=== PATIENT | male | born 1955 | race Caucasian/White ===

== ENCOUNTER → 2017-06-18 | Outpatient (CLI) | payer MEDICARE, OTHER ==
--- NOTE | 2017-06-18 09:53 | XR ---
Lumbar spine HISTORY: Low back pain, lumbar pain 3 views of the lumbar spine No comparisons There is multilevel spondylosis. Lumbar vertebral bodies show preserved height and alignment. Bone mi neralization mildly reduced. Loss of disc height present at the intervertebral levels, there is vacuu m phenomenon at L5-S1. Sclerosis present in the posterior elements. Atherosclerotic vascular calcific ations within the aorta, question ectasia. IMPRESSION: Degenerative disc disease. Facet arthropathy. There may be abdominal aortic ectasia.
--- NOTE | 2017-06-18 09:54 | XR ---
Left knee HISTORY: Left knee pain, trauma 3 views of the left knee There is no comparison. Soft tissue swelling is noted. Suprapatellar increased density suspected. Alignment, bone mineralizat ion within normal limits. Suspect some joint space loss in the medial compartment with minimal spurri ng. IMPRESSION: Soft tissue swelling. Osteoarthritis. Possible joint effusion.
== END | disposition home or self-care (01) ==
LOC: RADXRMAIN 06:34
PROVIDERS: ATTEND Family Medicine
DX: M51.36 Other intervertebral disc degeneration, lumbar region (principal); M46.86 Other specified inflammatory spondylopathies, lumbar region; M17.12 Unilateral primary osteoarthritis, left knee; M79.89 Other specified soft tissue disorders; M25.562 Pain in left knee; M54.5 Low back pain
CPT/HCPCS: 72100

== ENCOUNTER 2018-04-24 10:52 | Emergency (ER) | payer MEDICARE, OTHER ==
--- NOTE | 2018-04-24 11:19 | ED ---
General Adult HPI - General Chief complaint: Extremity Problem,Nontraumatic Stated complaint: LEFT FOOT PAIN Source: patient Mode of arrival: ambulatory Limitations: no limitations - History of Present Illness Initial comments: Dictation was produced using [employer] dictation software. please excuse any grammatical, word or spelling errors. Chief Complaint: 62-year-old male presents with left foot pain History of Present Illness: An is a 62-year-old male with multiple comorbidities presents with left foot pain. 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 States he was pushing a log when he was stepping with his foot while in a dorsiflexed position to push a log when he felt pain over the plantar surface of his foot near the left metatarsal head of the great toe. Patient states that he has significant pain when he walks. Denies any puncture wounds. He was wearing shoes. The ROS documented in this emergency department record has been reviewed and confirmed by me. Those systems with pertinent positive or negative responses have been documented in the HPI. All other systems are other negative and/or noncontributory. - Related Data Home Medications Medication Instructions Recorded Confirmed Budesonide/Formoterol Fumarate 2 puff INHALATION RT-BID 04/24/18 04/24/18 [Symbicort 160-4.5 Mcg Inhaler] Donepezil [Aricept] 10 mg PO BID 04/24/18 04/24/18 Gabapentin [Neurontin] 300 mg PO TID 04/24/18 04/24/18 Levalbuterol Tartrate [Xopenex Hfa 2 puff INHALATION RT-QID 04/24/18 04/24/18 Inhaler] Memantine [Namenda] 5 mg PO BID 04/24/18 04/24/18 Morphine Sulfate Ir [MSIR] 15 mg PO TID PRN 04/24/18 04/24/18 Sertraline [Zoloft] 100 mg PO BID 04/24/18 04/24/18 Umeclidinium [place] [Incruse 1 puff INHALATION RT-DAILY 04/24/18 04/24/18 Ellipta] levETIRAcetam [Keppra] 750 mg PO TID 04/24/18 04/24/18 rOPINIRole HCL [Requip] 2 mg PO BID 04/24/18 04/24/18 Allergies Allergy/AdvReac Type Severity Reaction Status Date / Time No Known Allergies Allergy Verified 04/24/18 11:25 Review of Systems ROS Statement: Those systems with pertinent positive or pertinent negative responses have been documented in the HPI. ROS Other: All systems not noted in ROS Statement are negative. Past Medical History Past Medical History: CVA/TIA, Hyperlipidemia, Hypertension History of Any Multi-Drug Resistant Organisms: None Reported Past Surgical History: Orthopedic Surgery Past Psychological History: Anxiety, Depression Smoking Status: Current every day smoker Past Alcohol Use History: Daily Past Drug Use History: Marijuana General Exam - General Exam Comments Initial Comments: PHYSICAL EXAM: General Impression: Alert and oriented x3, not in acute distress HEENT: Normocephalic atraumatic, extra-ocular movements intact, pupils equal and reactive to light bilaterally, mucous membranes moist. Cardiovascular: Heart regular rate and rhythm, S1&S2 audible, no murmurs, rubs or gallops Chest: Lungs clear to auscultation bilaterally, no rhonchi, no wheeze, no rales Abdomen: Bowel sounds present, abdomen soft, non-tender, non-distended, no organomegaly Musculoskeletal: Pulses present and equal in all extremities, no peripheral edema Left foot: Tenderness to palpation over the left metatarsal head of the great toe. No skin changes. Motor: Power 5/5 bilaterally, no focal deficits noted Neurological: CN II-XII grossly intact, no focal motor or sensory deficits noted Skin: Intact with no visualized rashes Psych: Normal affect and mood Limitations: no limitations Course Vital Signs 04/24/18 11:01 Temperature 98.4 F Pulse Rate 55 L Respiratory 20 Rate Blood Pressure 151/74 O2 Sat by Pulse 95 Oximetry Medical Decision Making - Medical Decision Making ED course: 62-year-old male presents with left foot pain. Signs upon arrival are within acceptable limits. X-ray is unremarkable. no suspicion of any infectious issue or gout. Patient be discharged to follow-up with his primary care physician. Told to take pain medications at home. He is also told to rest and ice his foot. Patient told to inquire with his PCP about podiatry consultation. He is provided a soft shoe for comfort. Disposition Clinical Impression: Foot pain Disposition: HOME SELF-CARE Condition: Good Instructions: Arthralgia (ED) Is patient prescribed a controlled substance at d/c from ED?: No Referrals: Sam Kaba MD [Primary Care Provider] - 1-2 days Jensen [place] DPM [STAFF PHYSICIAN] - 1-2 days Time of Disposition: 12:04
--- NOTE | 2018-04-24 11:42 | XR ---
EXAMINATION TYPE: XR foot complete LT DATE OF EXAM: 04/24/2018 COMPARISON: NONE HISTORY: 62-year-old male with a pain first metatarsal area, plantar surface TECHNIQUE: 3 views FINDINGS: No acute fracture, subluxation, or dislocation seen. No retained radiopaque foreign body identified. Possible old healed fracture deformity of the fifth proximal phalanx. IMPRESSION: No acute osseous abnormality seen.
[2018-04-24 12:23] VITALS: BP 150/78; PULSE 60; RESP 18; TEMP 98
== END 2018-04-24 12:21 | disposition home or self-care (01) ==
LOC: EC 10:52
DX: M79.672 Pain in left foot (principal); F32.9 Major depressive disorder, single episode, unspecified; F17.200 Nicotine dependence, unspecified, uncomplicated; Z86.73 Personal history of transient ischemic attack (TIA), and cerebral infarction without residual deficits; Z79.51 Long term (current) use of inhaled steroids; Z79.899 Other long term (current) drug therapy
CPT/HCPCS: 99283

== ENCOUNTER 2020-02-16 18:15 | Emergency (ER) | payer MEDICARE, OTHER ==
[2020-02-16 18:33] VITALS: BP 129/81; PULSE 66; RESP 18; TEMP 98.3
--- NOTE | 2020-02-16 19:12 | XR ---
EXAMINATION TYPE: XR finger LT DATE OF EXAM: 02/16/2020 COMPARISON: NONE HISTORY: Laceration TECHNIQUE: 3 views FINDINGS: There is a laceration deformity at the medial aspect of the DIP joint of the ring finger. I see no fracture nor dislocation. There is no sign of radiopaque foreign body. IMPRESSION: Soft tissue deformity and laceration. No fracture.
[2020-02-16] MEDS ORDERED: CLINDAMYCIN 600 MG in DEXTROSE 5% IN WATER 50 ML IVPB STA ×2 (19:17)
--- NOTE | 2020-02-16 20:14 | ED ---
General Adult HPI - General Chief complaint: Extremity Injury, Upper Stated complaint: finger injury Time Seen by Provider: 02/16/20 18:36 Source: patient, RN notes reviewed Mode of arrival: ambulatory Limitations: no limitations - History of Present Illness Initial comments: 64-year-old male with a past medical history hyperlipidemia, hypertension pres ents to the emergency department for a chief complaint of finger problem. Patient states that about 2-3 weeks ago he cut his left fourth digit with a knife. Patient states that it would not stop bleeding so he wrapped it tightly with electrical tape. Patient reports that about a day and a half later he remove the tape but it started bleeding again so he really wrapped it for another day and a half. Patient states when he took off the tape his finger looked black. States that it has continued to appear that way. Patient states it has looked the exact same for about a week at this point. He denies fevers or chills. He denies any pain in the hand. Denies any movement of the joints of the left fourth digit. Denies diabetes or smoking history. Denies any fevers at home.Patient has no other complaints at this time including shortness of breath, chest pain, abdominal pain, nausea or vomiting, headache, or visual changes. - Related Data Home Medications Medication Instructions Recorded Confirmed Budesonide/Formoterol Fumarate 2 puff INHALATION RT-BID 04/24/18 04/24/18 [Symbicort 160-4.5 Mcg Inhaler] Donepezil [Aricept] 10 mg PO BID 04/24/18 04/24/18 Gabapentin [Neurontin] 300 mg PO TID 04/24/18 04/24/18 Levalbuterol Tartrate [Xopenex Hfa 2 puff INHALATION RT-QID 04/24/18 04/24/18 Inhaler] Memantine [Namenda] 5 mg PO BID 04/24/18 04/24/18 Morphine Sulfate Ir [MSIR] 15 mg PO TID PRN 04/24/18 04/24/18 Sertraline [Zoloft] 100 mg PO BID 04/24/18 04/24/18 Umeclidinium [place] [Incruse 1 puff INHALATION RT-DAILY 04/24/18 04/24/18 Ellipta] levETIRAcetam [Keppra] 750 mg PO TID 04/24/18 04/24/18 rOPINIRole HCL [Requip] 2 mg PO BID 04/24/18 04/24/18 Previous Rx's Medication Instructions Recorded Cephalexin [Keflex] 500 mg PO Q6H 10 Days #40 cap 02/16/20 Sulfamethox-Tmp 800-160Mg [Bactrim 1 tab PO Q12HR #20 tab 02/16/20 DS 800-160 mg] Allergies Allergy/AdvReac Type Severity Reaction Status Date / Time No Known Allergies Allergy Verified 02/16/20 18:33 Review of Systems ROS Statement: Those systems with pertinent positive or pertinent negative responses have been documented in the HPI. ROS Other: All systems not noted in ROS Statement are negative. Past Medical History Past Medical History: CVA/TIA, Hyperlipidemia, Hypertension History of Any Multi-Drug Resistant Organisms: None Reported Past Surgical History: Orthopedic Surgery Past Psychological History: Anxiety, Depression Smoking Status: Current every day smoker Past Alcohol Use History: None Reported Past Drug Use History: Marijuana General Exam Limitations: no limitations General appearance: alert, in no apparent distress Head exam: Present: atraumatic, normocephalic, normal inspection Eye exam: Present: normal appearance, PERRL, EOMI. Absent: scleral icterus, conjunctival injection, periorbital swelling ENT exam: Present: normal exam, mucous membranes moist Neck exam: Present: normal inspection, full ROM. Absent: tenderness, meningismus, lymphadenopathy Respiratory exam: Present: normal lung sounds bilaterally. Absent: respiratory distress, wheezes, rales, rhonchi, stridor Cardiovascular Exam: Present: regular rate, normal rhythm, normal heart sounds. Absent: systolic murmur, diastolic murmur, rubs, gallop, clicks Extremities exam: Present: full ROM (Full range of motion of the left fourth digit including the MCP, PIP, and DIP joints.), normal capillary refill (Capillary refill less than 2 seconds in the first second third and fifth digits of the left hand, radial pulses 2+. Patient does have capillary refill intact in the palmar aspect of the left fourth digit however the dorsum of the entire distal phalanx is necrotic.). Absent: normal inspection, tenderness (No significant tenderness of the left fourth digit. Patient has sensation to the distal aspect of the left fourth digit on the palmar aspect where he does appear to have some blood flow. However the door some of the distal phalanx of the left fourth digit appears necrotic. There is some erythema extends up to the PIP joint. No purulent material.) Neurological exam: Present: alert Course Vital Signs 02/16/20 18:24 Temperature 98.3 F Pulse Rate 66 Respiratory 18 Rate Blood Pressure 129/81 O2 Sat by Pulse 96 Oximetry Medical Decision Making - Medical Decision Making HPI and physical exam as documented. X-ray of the left finger shows soft tissue deformity and laceration, no fracture. Patient was also seen by Dr. Espinal. We both recommended to patient that he stay in the hospital however he refuses this stating he has a dog to care for at home and would much prefer to go home. He refuses admission. He did agree to receive 1 dose of IV antibiotics here in the emergency room. He will be given oral antibiotics at home. He will follow up with hand surgery. He will return here for any worsening symptoms. Strict return parameters were discussed including any spreading redness whatsoeve or fevers Disposition Clinical Impression: Necrosis of finger Disposition: HOME SELF-CARE Condition: Good Instructions (If sedation given, give patient instructions): Cellulitis (ED) Additional Instructions: Please monitor for any spreading redness or return if these occur. Return if you have any other worsening symptoms or fevers or swelling or redness of the hand. Please take antibiotics as directed. Please follow-up with hand surgery as soon as possible. Call tomorrow for an appointment. Return here for any worsening symptoms. Prescriptions: Sulfamethox-Tmp 800-160Mg [Bactrim DS 800-160 mg] 1 tab PO Q12HR #20 tab Cephalexin [Keflex] 500 mg PO Q6H 10 Days #40 cap Is patient prescribed a controlled substance at d/c from ED?: No Referrals: Anthony Leroy MD [Primary Care Provider] - 1-2 days Channing Bowen DO [Medical Doctor] - 1-2 days Time of Disposition: 20:12
== END 2020-02-16 20:40 | disposition home or self-care (01) ==
LOC: EC 18:15
DX: I96 Gangrene, not elsewhere classified (principal); E78.5 Hyperlipidemia, unspecified; I10 Essential (primary) hypertension; F41.9 Anxiety disorder, unspecified; F32.9 Major depressive disorder, single episode, unspecified; F17.200 Nicotine dependence, unspecified, uncomplicated; Z86.73 Personal history of transient ischemic attack (TIA), and cerebral infarction without residual deficits; Z79.899 Other long term (current) drug therapy; W26.0XXA Contact with knife, initial encounter
CPT/HCPCS: 96365; 99283

== ENCOUNTER 2020-10-03 10:52 | Observation (INO) | payer MEDICARE, OTHER ==
[2020-10-03] MEDS ORDERED: SODIUM CHLORIDE 0.9% 1,000 ML IV STA (11:23)
[2020-10-03] MEDS ORDERED: PANTOPRAZOLE 40 MG/10 ML VIAL IVP STA (11:23)
[2020-10-03] MEDS ORDERED: HYDROmorphone 0.5 MG/0.5 ML SYRINGE IVP STA (11:23)
--- NOTE | 2020-10-03 11:27 | ED ---
General Adult HPI - General Chief complaint: Chest Pain Stated complaint: chest pain Time Seen by Provider: 10/03/20 11:04 Source: patient, RN notes reviewed Mode of arrival: wheelchair Limitations: no limitations - History of Present Illness Initial comments: Patient is a pleasant 64-year-old male presenting to the emergency Department with complaints of chest discomfort. Onset of symptoms was 3 days ago. Discomfort was more severe at that point however still occurring. Patient points to the right upper abdomen as far as area discomfort. Patient has a difficult time describing his symptoms. No associated dyspnea. No nausea vomiting. No history of similar symptoms previously. Patient states his dad once had chest pain however it was more intestinal problems so he decided to wait to come in. No constipation or diarrhea. No fever. - Related Data Home Medications Medication Instructions Recorded Confirmed Budesonide/Formoterol Fumarate 2 puff INHALATION RT-BID 04/24/18 10/03/20 [Symbicort 160-4.5 Mcg Inhaler] Donepezil [Aricept] 10 mg PO BID 04/24/18 10/03/20 Memantine [Namenda] 5 mg PO BID 04/24/18 10/03/20 Sertraline [Zoloft] 100 mg PO BID 04/24/18 10/03/20 Umeclidinium [place] [Incruse 1 puff INHALATION RT-DAILY 04/24/18 10/03/20 Ellipta] rOPINIRole HCL [Requip] 2 mg PO BID 04/24/18 10/03/20 Albuterol Sulfate [Ventolin HFA] 1 - 2 puff INHALATION RT-Q6H PRN 10/03/20 0 10/03/20 Aspirin 325 mg PO DAILY 10/03/20 10/03/20 HYDROcodone/APAP 10-325MG [[place] 1 tab PO QID PRN 10/03/20 10/03/20 10-325] Oxybutynin Chloride [Ditropan] 5 mg PO DAILY 10/03/20 10/03/20 Allergies Allergy/AdvReac Type Severity Reaction Status Date / Time No Known Allergies Allergy Verified 10/03/20 12:26 Review of Systems ROS Statement: Those systems with pertinent positive or pertinent negative responses have been documented in the HPI. ROS Other: All systems not noted in ROS Statement are negative. Constitutional: Denies: fever Eyes: Denies: eye pain ENT: Denies: ear pain Respiratory: Denies: cough Cardiovascular: Reports: as per HPI Endocrine: Denies: fatigue Gastrointestinal: Reports: as per HPI Genitourinary: Denies: dysuria Musculoskeletal: Denies: back pain Skin: Denies: rash Neurological: Denies: weakness Past Medical History Past Medical History: CVA/TIA, Hyperlipidemia, Hypertension History of Any Multi-Drug Resistant Organisms: None Reported Past Surgical History: Orthopedic Surgery Past Psychological History: Anxiety, Depression Smoking Status: Never smoker Past Alcohol Use History: None Reported Past Drug Use History: Marijuana General Exam Limitations: no limitations General appearance: alert, in no apparent distress Head exam: Present: atraumatic Eye exam: Present: normal appearance, PERRL ENT exam: Present: normal exam Neck exam: Present: normal inspection Respiratory exam: Present: normal lung sounds bilaterally Cardiovascular Exam: Present: regular rate, normal rhythm, normal heart sounds Expanded Peripheral pulses: 2+: Radial (R), Radial (L), Dorsalis Pedis (R), Dorsalis Pedis (L) GI/Abdominal exam: Present: soft, tenderness (Moderate tenderness right upper and right lower quadrant), guarding, normal bowel sounds. Absent: distended, rebound, rigid, pulsatile mass Extremities exam: Present: normal inspection. Absent: pedal edema, calf tenderness Neurological exam: Present: alert Psychiatric exam: Present: normal affect, normal mood Skin exam: Present: normal color Course Vital Signs 10/03/20 10/03/20 10/03/20 10:57 11:37 14:00 Temperature 98.1 F Pulse Rate 75 61 87 Respiratory 18 16 16 Rate Blood Pressure 144/80 119/86 101/82 O2 Sat by Pulse 95 95 99 Oximetry EKG Findings - EKG Comments: EKG Findings:: Normal sinus rhythm at 65. AL 144. QRS 86. QT 428. QTC 445. Normal axis. Normal QRS. No acute ST change. Medical Decision Making - Medical Decision Making Patient reevaluated and resting comfortably in bed. Patient still complaining of discomfort. Case discussed with Dr. Leroy, who will admit his patient. Ultrasound gallbladder will be added. - Lab Data Result diagrams: 10/03/20 11:19 10/03/20 11:19 Lab Results 10/03/20 10/03/20 10/03/20 Range/Units 11:19 11:19 11:19 WBC 6.7 (3.8-10.6) k/uL RBC 5.46 (4.30-5.90) m/uL Hgb 16.6 (13.0-17.5) gm/dL Hct 50.1 (39.0-53.0) % MCV 91.8 (80.0-100.0) fL MCH 30.4 (25.0-35.0) pg MCHC 33.2 (31.0-37.0) g/dL RDW 14.2 (11.5-15.5) % Plt Count 156 (150-450) k/uL MPV 7.9 Neutrophils % 76 % Lymphocytes % 13 % Monocytes % 7 % Eosinophils % 1 % Basophils % 0 % Neutrophils # 5.1 (1.3-7.7) k/uL Lymphocytes # 0.9 L (1.0-4.8) k/uL Monocytes # 0.5 (0-1.0) k/uL Eosinophils # 0.1 (0-0.7) k/uL Basophils # 0.0 (0-0.2) k/uL PT 9.7 (9.0-12.0) sec INR 0.9 (<1.2) APTT 23.6 (22.0-30.0) sec Sodium 137 (137-145) mmol/L Potassium 4.2 (3.5-5.1) mmol/L Chloride 101 (98-107) mmol/L Carbon Dioxide 27 (22-30) mmol/L Anion Gap 9 mmol/L BUN 10 (9-20) mg/dL Creatinine 0.77 (0.66-1.25) mg/dL Est GFR (CKD-EPI)AfAm >90 (>60 ml/min/1.73 sqM) Est GFR (CKD-EPI)NonAf >90 (>60 ml/min/1.73 sqM) Glucose 117 H (74-99) mg/dL Calcium 9.6 (8.4-10.2) mg/dL Total Bilirubin 0.7 (0.2-1.3) mg/dL AST 26 (17-59) U/L ALT 17 (4-49) U/L Alkaline Phosphatase 95 (38-126) U/L Creatine Kinase 43 L (55-170) U/L Troponin I (0.000-0.034) ng/mL Total Protein 8.0 (6.3-8.2) g/dL Albumin 4.8 (3.5-5.0) g/dL Amylase 65 (30-110) U/L Lipase 56 (23-300) U/L Urine Color Urine Appearance (Clear) Urine pH (5.0-8.0) Ur Specific [place] (1.001-1.035) Urine Protein (Negative) Urine Glucose (UA) (Negative) Urine Ketones (Negative) Urine Blood (Negative) Urine Nitrite (Negative) Urine Bilirubin (Negative) Urine Urobilinogen (<2.0) mg/dL Ur Leukocyte Esterase (Negative) Serum Alcohol <10 mg/dL 10/03/20 10/03/20 Range/Units 11:19 12:20 WBC (3.8-10.6) k/uL RBC (4.30-5.90) m/uL Hgb (13.0-17.5) gm/dL Hct (39.0-53.0) % MCV (80.0-100.0) fL MCH (25.0-35.0) pg MCHC (31.0-37.0) g/dL RDW (11.5-15.5) % Plt Count (150-450) k/uL MPV Neutrophils % % Lymphocytes % % Monocytes % % Eosinophils % % Basophils % % Neutrophils # (1.3-7.7) k/uL Lymphocytes # (1.0-4.8) k/uL Monocytes # (0-1.0) k/uL Eosinophils # (0-0.7) k/uL Basophils # (0-0.2) k/uL PT (9.0-12.0) sec INR (<1.2) APTT (22.0-30.0) sec Sodium (137-145) mmol/L Potassium (3.5-5.1) mmol/L Chloride (98-107) mmol/L Carbon Dioxide (22-30) mmol/L Anion Gap mmol/L BUN (9-20) mg/dL Creatinine (0.66-1.25) mg/dL Est GFR (CKD-EPI)AfAm (>60 ml/min/1.73 sqM) Est GFR (CKD-EPI)NonAf (>60 ml/min/1.73 sqM) Glucose (74-99) mg/dL Calcium (8.4-10.2) mg/dL Total Bilirubin (0.2-1.3) mg/dL AST (17-59) U/L ALT (4-49) U/L Alkaline Phosphatase (38-126) U/L Creatine Kinase (55-170) U/L Troponin I <0.012 (0.000-0.034) ng/mL Total Protein (6.3-8.2) g/dL Albumin (3.5-5.0) g/dL Amylase (30-110) U/L Lipase (23-300) U/L Urine Color Yellow Urine Appearance Clear (Clear) Urine pH 6.0 (5.0-8.0) Ur Specific [place] 1.014 (1.001-1.035) Urine Protein Negative (Negative) Urine Glucose (UA) Negative (Negative) Urine Ketones Negative (Negative) Urine Blood Negative (Negative) Urine Nitrite Negative (Negative) Urine Bilirubin Negative (Negative) Urine Urobilinogen <2.0 (<2.0) mg/dL Ur Leukocyte Esterase Negative (Negative) Serum Alcohol mg/dL - Radiology Data Radiology results: report reviewed (Computed tomography scan of the chest, abdomen, and pelvis reveal no acute process), image reviewed (Chest x-ray shows no acute process) Disposition Clinical Impression: Chest pain, Abdominal pain Disposition: ADMITTED IP TO THIS HOSP Is patient prescribed a controlled substance at d/c from ED?: No Referrals: Anthony Leroy MD [Primary Care Provider] - 1-2 days Decision Time: 15:06
[2020-10-03 11:43] LABS: Basophils % (A) 0 %; Eosinophils # (A) 0.1 k/uL (0-0.7); Eosinophils % (A) 1 %; HCT 50.1 % (39.0-53.0); HGB 16.6 gm/dL (13.0-17.5); Lymphocytes # (A) 0.9 k/uL (1.0-4.8); Lymphocytes % (A) 13 %; MCH 30.4 pg (25.0-35.0); MCHC 33.2 g/dL (31.0-37.0); MCV 91.8 fL (80.0-100.0); Mean Platelet Volume 7.9; Monocytes # (A) 0.5 k/uL (0-1.0); Monocytes % (A) 7 %; Neutrophils # (A) 5.1 k/uL (1.3-7.7); Neutrophils % (A) 76 %; Platelet Count 156 k/uL (150-450); RBC 5.46 m/uL (4.30-5.90); RDW 14.2 % (11.5-15.5); WBC 6.7 k/uL (3.8-10.6)
[2020-10-03 11:56] LABS: INR 0.9 (<1.2); Partial Thromboplastin Time 23.6 sec (22.0-30.0); Prothrombin Time 9.7 sec (9.0-12.0)
[2020-10-03 12:12] LABS: ALT 17 U/L (4-49); AST 26 U/L (17-59); African American GFR (CKD) >90 (>60 ml/min/1.73 sqM); Albumin 4.8 g/dL (3.5-5.0); Alcohol <10 mg/dL; Alkaline Phosphatase 95 U/L (38-126); Amylase 65 U/L (30-110); Anion Gap 9 mmol/L; Blood Urea Nitrogen 10 mg/dL (9-20); Calcium 9.6 mg/dL (8.4-10.2); Carbon Dioxide 27 mmol/L (22-30); Chloride 101 mmol/L (98-107); Creatine Kinase 43 U/L (55-170); Glucose 117 mg/dL (74-99); Lipase 56 U/L (23-300); Non-African American GFR(CKD) >90 (>60 ml/min/1.73 sqM); Potassium 4.2 mmol/L (3.5-5.1); Sodium 137 mmol/L (137-145); Total Bilirubin 0.7 mg/dL (0.2-1.3)
[2020-10-03 13:03] LABS: Appearance,Urine Clear (Clear); Bilirubin,Urine Negative (Negative); Blood,Urine Negative (Negative); Color,Urine Yellow; Glucose,Urine (UA) Negative (Negative); Ketones,Urine Negative (Negative); Leukocyte Esterase,Urine Negative (Negative); Nitrite,Urine Negative (Negative); Protein,Urine Negative (Negative); Specific Gravity,Urine 1.014 (1.001-1.035); Urobilinogen,Urine <2.0 mg/dL (<2.0)
--- NOTE | 2020-10-03 14:38 | CT ---
EXAMINATION TYPE: CT ChestAbdPelvis w con DATE OF EXAM: 10/03/2020 COMPARISON: none HISTORY: Right sided upper abdominal pain to mid chest pain CT DLP: 1169.1 mGycm CONTRAST: CT scan of the chest, abdomen and pelvis is performed without Oral Contrast and with IV Contrast, pat ient injected with 100 mL of Isovue 300. CT Chest: LUNGS: The lungs are clear and free of infiltrate or atelectasis. Nodular density identified within t he periphery of the right midlung zone measuring 6 mm. Basilar linear atelectasis identified. No evid ence for infiltrate or mass. No pleural effusion noted. No pleural effusion or CT evidence of interst itial lung disease. MEDIASTINUM: Thoracic aorta is of normal caliber. The heart is not enlarged. No evidence for media stinal mass or adenopathy. HILAR STRUCTURES: No evidence for mass. No hilar adenopathy is appreciated. OTHER: No significant abnormality. CONTRAST CT ABDOMEN AND PELVIS FINDINGS: LIVER/GB: No calcified gallstones. No space occupying hepatic lesion. Biliary tree is of normal ca liber. PANCREAS: No inflammation. No distinct mass. SPLEEN: No splenic enlargement. No lesion seen. ADRENALS: No nodule. No thickening. KIDNEYS/BLADDER: No hydronephrosis. No nephrolithiasis. No cystic changes are noted bilaterally. No evidence for solid renal mass. BOWEL: Normal appendix. Normal bowel caliber. No inflammation. GENITAL ORGANS: No gross abnormality. LYMPH NODES: No greater than 1cm abdominal or pelvic lymph nodes are appreciated. AORTA: Nonaneurysmal atheromatous change of the abdominal aorta. OSSEOUS STRUCTURES: No significant abnormality is seen. OTHER: Bilateral small fat-containing inguinal hernias seen. IMPRESSION: 1. No acute process to account for the patient's symptoms.
[2020-10-03] MEDS ORDERED: HYDROmorphone 1 MG/ML 1 ML SYRINGE IVP STA (15:04)
--- NOTE | 2020-10-03 15:04 | XR ---
EXAMINATION TYPE: XR chest 2V DATE OF EXAM: 10/03/2020 COMPARISON: Chest x-ray 01/23/2014, CT 10/03/2020 HISTORY: Chest pain TECHNIQUE: Frontal and lateral views of the chest are obtained. FINDINGS: Multiple old rib fractures have healed, there is a right clavicular fracture which shows n onunion and hypertrophic change which is an interval finding. Aorta is dense. Cardiac mediastinal lino houette is stable accounting for differences in technique. No evident airspace disease, pneumothorax, or pleural effusion. There are prominent lung volumes. Relative flattening the hemidiaphragms also n oted, there is underlying emphysema. IMPRESSION: No acute cardiopulmonary process.
[2020-10-03] MEDS ORDERED: NITROGLYCERIN SL TABS 0.4 MG TAB SUBLINGUAL PRN (15:06)
[2020-10-03] MEDS ORDERED: ASPIRIN 81 MG PO STA (15:06)
--- NOTE | 2020-10-03 16:43 | US ---
EXAMINATION TYPE: US gallbladder DATE OF EXAM: 10/03/2020 COMPARISON: NONE CLINICAL HISTORY: pain. chest pain EXAM MEASUREMENTS: Liver Length: 16.0 cm Gallbladder Wall: 0.2 cm CBD: 0.4 cm Right Kidney: 10.1 x 5.3 x 5.2 cm Pancreas: wnl Liver: wnl Gallbladder: wnl Evidence for sonographic Hogan's sign: no CBD: wnl Right Kidney: multiple cysts, largest =1.9cm inferior pole cyst seen IMPRESSION: No sonographic evidence of acute abnormality or cholelithiasis. Benign right renal cysts.
[2020-10-03] MEDS: SODIUM CHLORIDE 0.9% 1,000 ML IV SCH (18:33)
[2020-10-03] MEDS: HYDROcodone/APAP 10-325MG 1 EACH TAB PO PRN (20:39)
[2020-10-03] MEDS: DONEPEZIL 10 MG TAB PO SCH (21:44)
[2020-10-03] MEDS: MEMANTINE 5 MG TAB PO SCH (21:44)
[2020-10-03] MEDS: SERTRALINE 100 MG TAB PO SCH (21:54)
[2020-10-03] MEDS: SYMBICORT 160-4.5 MCG INHALER INHALATION SCH (21:57)
[2020-10-04] MEDS: ALBUTEROL NEBULIZED 2.5 MG/3 ML INHALATION PRN ×2 (00:02→07:26)
[2020-10-04] MEDS: SODIUM CHLORIDE 0.9% 1,000 ML IV SCH ×2 (00:47→09:18)
[2020-10-04 02:37] LABS: Cholesterol 212 mg/dL (<200); HDL Cholesterol 47 mg/dL (40-60); LDL Cholesterol,Calculated 140 mg/dL (0-99); Triglycerides 127 mg/dL (<150)
[2020-10-04] MEDS: SYMBICORT 160-4.5 MCG INHALER INHALATION SCH (07:26)
[2020-10-04 07:58] VITALS: BP 123/81; PULSE 55; RESP 14; TEMP 97.9
[2020-10-04] MEDS ORDERED: ASPIRIN 81 MG PO SCH (09:00)
[2020-10-04] MEDS ORDERED: ASPIRIN 325 MG TAB PO SCH ×2 (09:00)
[2020-10-04] MEDS: HYDROcodone/APAP 10-325MG 1 EACH TAB PO PRN (09:16)
[2020-10-04] MEDS: MEMANTINE 5 MG TAB PO SCH (09:17)
[2020-10-04] MEDS: SERTRALINE 100 MG TAB PO SCH (09:17)
[2020-10-04] MEDS: DONEPEZIL 10 MG TAB PO SCH (09:17)
[2020-10-04] MEDS ORDERED: polyethylene glycoL 3350 17 GM POWD.PACK PO SCH (09:30)
--- NOTE | 2020-10-04 09:30 | P.CRDCN ---
History of Present Illness History of present illness: HISTORY OF PRESENTING ILLNESS This is a pleasant 64-year-old male past medical history significant for COPD, dementia, hypertension, restless leg syndrome and dyslipidemia. He follows in the office with Dr. Adamson. We have been asked to see in consultation for chest pain. He presented to the emergency department with symptoms of right upper quadrant discomfort that has been ongoing for the previous 3 days intermittently. The discomfort is not exacerbated by activity or exertion. It doesn't seem to be exacerbated by oral intake. He is quite tender even to light touch in the right upper torso. He denies left precordial chest pain, shortness of breath, dizziness, palpitations, nausea, vomiting or diaphoresis. DIAGNOSTICS EKG reveals sinus mechanism with no acute ST or T wave abnormalities noted. Telemetry tracings indicate honest mechanism with no arrhythmias noted. Chest xray negative for acute cardiopulmonary process. CT of the abdomen and pelvis unremarkable. Ultrasound of the gallbladder unremarkable. Laboratory reviewed, cardiacenzymes negative 3, CBC unremarkable, sodium 137, potassium 4.2, creatinine 0.77, LDL 140, HDL 47 and total cholesterol 212. Current cardiac medications include aspirin 325 mg daily. He underwent a dobutamine stress echocardiogram in 2018 that was negative for stress-induced ischemia. REVIEW OF SYSTEMS At the time of my exam: CONSTITUTIONAL: Denies fever or chills. CARDIOVASCULAR: Denies chest pain, shortness of breath, orthopnea, PND or palpitations. RESPIRATORY: Denies cough. GASTROINTESTINAL: Denies abdominal pain, diarrhea, constipation, nausea or vomiting. MUSCULOSKELETAL: Denies myalgias. NEUROLOGIC: Denies numbness, tingling, headacbe or weakness. ENDOCRINE: Denies fatigue, weight change, polydipsia or polyurina. GENITOURINARY: Denies burning, hematuria or urgency with micturation. HEMATOLOGIC: Denies history of anemia or bleeding. PHYSICAL EXAMINATION Blood pressure 123/81 heart rate 55 afebrile and maintaining oxygen saturation on nasal cannula. CONSTITUTIONAL: No apparent distress. HEENT: Head is normocephalic. Pupils are equal, round. Sclerae anicteric. Mucous membranes of the mouth are moist. No JVD. No carotid bruit. CHEST EXAMINATION: Lungs are clear to auscultation. No chest wall tenderness is noted on palpation or with deep breathing. HEART EXAMINATION: Regular rate and rhythm. S1, S2 heard. No murmurs, gallops or rub. ABDOMEN: Soft, right upper quadrant tender to light palpation, even just with the gown touching the skin. Positive bowel sounds. EXTREMITIES: 2+ peripheral pulses, no lower extremity edema and no calf tenderness. NEUROLOGIC EXAMINATION: Patient is awake, alert and oriented x3. ASSESSMENT Abdominal pain COPD PLAN An acute coronary event has been ruled out. Pain is reproducible to light touch, consider possible early shingles with no rash formation yet. Atypical for angina, no further cardiac work up at this time. Stable from a cardiac perspective. Follow up with Dr. Adamson upon discharge. Thank you kindly for this consultation. Nurse Practitioner note has been reviewed, I agree with a documented findings and plan of care. Patient was seen and examined. Past Medical History Past Medical History: CVA/TIA, Hyperlipidemia, Hypertension Additional Past Medical History / Comment(s): chronic back pain History of Any Multi-Drug Resistant Organisms: None Reported Past Surgical History: Orthopedic Surgery Past Psychological History: Anxiety, Depression Smoking Status: Former smoker Past Alcohol Use History: None Reported Past Drug Use History: Marijuana - Past Family History Mother Additional Family Medical History / Comment(s): etoh abuse Father Family Medical History: Chest Pain / Angina Additional Family Medical History / Comment(s): mi Medications and Allergies Home Medications Medication Instructions Recorded Confirmed Type Budesonide/Formoterol Fumarate 2 puff INHALATION RT-BID 04/24/18 10/03/20 History [Symbicort 160-4.5 Mcg Inhaler] Donepezil [Aricept] 10 mg PO BID 04/24/18 10/03/20 History Memantine [Namenda] 5 mg PO BID 04/24/18 10/03/20 History Sertraline [Zoloft] 100 mg PO BID 04/24/18 10/03/20 History Umeclidinium [place] [Incruse 1 puff INHALATION RT-DAILY 04/24/18 10/03/20 History Ellipta] rOPINIRole HCL [Requip] 2 mg PO BID 04/24/18 10/03/20 History Albuterol Sulfate [Ventolin HFA] 1 - 2 puff INHALATION RT-Q6H PRN 10/03/20 10/03/20 History Aspirin 325 mg PO DAILY 10/03/20 10/03/20 History HYDROcodone/APAP 10-325MG [[place] 1 tab PO QID PRN 10/03/20 10/03/20 History 10-325] Oxybutynin Chloride [Ditropan] 5 mg PO DAILY 10/03/20 10/03/20 History Allergies Allergy/AdvReac Type Severity Reaction Status Date / Time No Known Allergies Allergy Verified 10/03/20 12:26 Physical Exam Vitals: Vital Signs Temp Pulse Pulse Resp BP BP BP 10/04/20 07:57 97.9 F 55 L 14 123/81 10/04/20 07:41 62 10/04/20 07:26 60 10/04/20 02:00 97.7 F 17 122/77 10/04/20 00:16 54 L 10/04/20 00:03 54 L 10/03/20 20:00 98 F 72 18 125/81 10/03/20 17:32 97.6 F 19 126/78 10/03/20 15:38 63 18 124/80 10/03/20 14:00 87 16 101/82 10/03/20 11:37 61 16 119/86 10/03/20 10:57 98.1 F 75 18 144/80 Pulse Ox 10/04/20 07:57 97 10/04/20 07:41 10/04/20 07:26 96 10/04/20 02:00 97 10/04/20 00:16 10/04/20 00:03 10/03/20 20:00 97 10/03/20 17:32 97 10/03/20 15:38 96 10/03/20 14:00 99 10/03/20 11:37 95 10/03/20 10:57 95 Intake and Output 10/03/20 10/04/20 10/04/20 22:59 06:59 14:59 Intake Total 800 800 Output Total 700 Balance 100 800 Intake: Intake, IV Titration 800 800 Amount Sodium Chloride 0.9% 1, 800 800 000 ml @ 100 mls/hr IV . Q10H [facility] Rx#:[id number] Output: Urine 700 Other: Voiding Method Toilet Toilet Urinal Urinal # Voids 1 Weight 95.254 kg Results 10/03/20 11:19 10/03/20 11:19 Cardiac Enzymes 02/08/21 02/08/21 02/08/21 Range/Units 11:19 11:19 15:33 AST 26 (17-59) U/L Troponin I <0.012 <0.012 (0.000-0.034) ng/mL 10/03/20 Range/Units 18:00 AST (17-59) U/L Troponin I <0.012 (0.000-0.034) ng/mL Coagulation 10/03/20 Range/Units 11:19 PT 9.7 (9.0-12.0) sec APTT 23.6 (22.0-30.0) sec Lipids 10/03/20 Range/Units 11:19 Triglycerides 127 (<150) mg/dL Cholesterol 212 H (<200) mg/dL HDL Cholesterol 47 (40-60) mg/dL CBC 10/03/20 Range/Units 11:19 WBC 6.7 (3.8-10.6) k/uL RBC 5.46 (4.30-5.90) m/uL Hgb 16.6 (13.0-17.5) gm/dL Hct 50.1 (39.0-53.0) % Plt Count 156 (150-450) k/uL Comprehensive Metabolic Panel 10/03/20 Range/Units 11:19 Sodium 137 (137-145) mmol/L Potassium 4.2 (3.5-5.1) mmol/L Chloride 101 (98-107) mmol/L Carbon Dioxide 27 (22-30) mmol/L BUN 10 (9-20) mg/dL Creatinine 0.77 (0.66-1.25) mg/dL Glucose 117 H (74-99) mg/dL Calcium 9.6 (8.4-10.2) mg/dL AST 26 (17-59) U/L ALT 17 (4-49) U/L Alkaline Phosphatase 95 (38-126) U/L Total Protein 8.0 (6.3-8.2) g/dL Albumin 4.8 (3.5-5.0) g/dL Current Medications Generic Name Dose Route Start Last Admin Trade Name Freq PRN Reason Stop Dose Admin Hydrocodone Bitart/Acetaminophen 1 each 10/03/20 20:26 10/03/20 20:39 Hydrocodone/Apap 10-325mg 1 Each Tab PO 1 each QID PRN Administration Pain Albuterol Sulfate 2.5 mg 10/03/20 21:08 10/04/20 07:26 Albuterol Nebulized 2.5 Mg/3 Ml INHALATION 2.5 mg RT-Q6H PRN Administration Shortness Of Breath Aspirin 325 mg 10/04/20 09:00 Aspirin 325 Mg Tab PO DAILY ROBERT Budesonide/Formoterol Fumarate 2 puff 10/03/20 21:30 10/04/20 07:26 Symbicort 160-4.5 Mcg Inhaler INHALATION 2 puff RT-BID ROBERT Administration Donepezil HCl 10 mg 10/03/20 21:00 10/03/20 21:44 Donepezil 10 Mg Tab PO Not Given BID ROBERT Sodium Chloride 1,000 mls @ 100 mls/hr 10/03/20 15:15 10/04/20 00:47 Saline 0.9% IV Not Given .Q10H [facility] Memantine 5 mg 10/03/20 21:00 10/03/20 21:44 Memantine 5 Mg Tab PO Not Given BID ROBERT Nitroglycerin 0.4 mg 10/03/20 15:06 Nitroglycerin Sl Tabs 0.4 Mg Tab SUBLINGUAL Q5M PRN Chest Pain Ropinirole HCl 2 mg 10/03/20 21:00 10/03/20 21:54 Ropinirole Hcl 1 Mg Tab PO Not Given BID ROBERT Sertraline HCl 100 mg 10/03/20 21:00 10/03/20 21:54 Sertraline 100 Mg Tab PO Not Given BID [facility] Intake and Output 10/03/20 10/04/20 10/04/20 22:59 06:59 14:59 Intake Total 800 800 Output Total 700 Balance 100 800 Intake: Intake, IV Titration 800 800 Amount Sodium Chloride 0.9% 1, 800 800 000 ml @ 100 mls/hr IV . Q10H [facility] Rx#:[id number] Output: Urine 700 Other: Voiding Method Toilet Toilet Urinal Urinal # Voids 1 Weight 95.254 kg 10/03/20 11:19 10/03/20 11:19
--- NOTE | 2020-10-04 12:32 | ECHOF ---
Referral Reason:abdominal pain MEASUREMENTS -------- HEIGHT: 182.9 cm WEIGHT: 95.3 kg BP: 123/81 RVIDd: 3.8 cm (< 3.3) IVSd: 1.1 cm (0.6 - 1.1) LVIDd: 5.1 cm (3.9 - 5.3) LVPWd: 1.2 cm (0.6 - 1.1) IVSs: 1.2 cm LVIDs: 3.6 cm LVPWs: 1.4 cm LA Diam: 3.7 cm (2.7 - 3.8) LAESV Index (A-L): 27.70 ml/m Ao Diam: 3.3 cm (2.0 - 3.7) AV Cusp: 2.3 cm (1.5 - 2.6) MV EXCURSION: 20.477 mm (> 18.000) MV EF SLOPE: 142 mm/s (70 - 150) EPSS: 0.7 cm MV E Long: 0.71 m/s MV DecT: 166 ms MV A Long: 0.54 m/s MV E/A Ratio: 1.32 RAP: 5.00 mmHg RVSP: 16.18 mmHg FINDINGS -------- Sinus rhythm. This was a technically adequate study. LV size, wall thickness and systolic function are normal, with an EF greater than 55%. The left meggan tricular size is normal. The right ventricle is mildly enlarged. Normal LA size by volume 22+/-6 ml/m2. The right atrial size is normal. The aortic valve is trileaflet, and appears structurally normal. No aortic stenosis or regurgitation. The mitral valve is normal. Mild mitral regurgitation is present. The tricuspid valve appears structurally normal. Mild tricuspid regurgitation present. Right vent ricular systolic pressure is normal at < 35 mmHg. There is no pulmonic regurgitation present. The aortic root size is normal. There is no pericardial effusion. CONCLUSIONS -------- 1. LV size, wall thickness and systolic function are normal, with an EF greater than 55%. 2. The right ventricle is mildly enlarged. 3. Normal LA size by volume 22+/-6 ml/m2. 4. The aortic valve is trileaflet, and appears structurally normal. No aortic stenosis or regurgitati on. 5. Mild mitral regurgitation is present. 6. Mild tricuspid regurgitation present. CARDIOGRAPH OPERATOR: Andria Alvarenga RDCS
[2020-10-04 15:32] LABS: Basophils # (A) 0.03 X 10*3/uL (0.00-0.10); Basophils % (A) 0.5 %; Eosinophils # (A) 0.07 X 10*3/uL (0.04-0.35); Eosinophils % (A) 1.2 %; HGB 14.8 g/dL (13.0-17.0); Lymphocytes # (A) 0.71 X 10*3/uL (0.90-5.00); Lymphocytes % (A) 12.1 %; MCHC 32.2 g/dL (32.0-37.0); MCV 93.1 fL (80.0-97.0); Mean Platelet Volume 11.5 fL (9.5-12.2); Monocytes # (A) 0.54 X 10*3/uL (0.20-1.00); Monocytes % (A) 9.2 %; Neutrophils # (A) 4.44 X 10*3/uL (1.80-7.70); Platelet Count 156 X 10*3/uL (140-440); RBC 4.94 X 10*6/uL (4.40-5.60); RDW 14.1 % (11.5-14.5); WBC 5.85 X 10*3/uL (4.50-10.00)
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
== END 2020-10-04 13:25 | disposition home or self-care (01) ==
LOC: EC 10:52 → 6NMEDSUR 15:06
PROVIDERS: ADMIT Family Medicine; ATTEND Family Medicine
DX: R07.89 Other chest pain (principal); R10.11 Right upper quadrant pain; E78.5 Hyperlipidemia, unspecified; I10 Essential (primary) hypertension; F32.9 Major depressive disorder, single episode, unspecified; F41.9 Anxiety disorder, unspecified; F03.90 Unspecified dementia, unspecified severity, without behavioral disturbance, psychotic disturbance, mood disturbance, and anxiety; G25.81 Restless legs syndrome; J44.9 Chronic obstructive pulmonary disease, unspecified; G89.29 Other chronic pain; M54.9 Dorsalgia, unspecified; Z79.51 Long term (current) use of inhaled steroids; Z79.899 Other long term (current) drug therapy; Z79.82 Long term (current) use of aspirin; Z79.891 Long term (current) use of opiate analgesic; Z86.73 Personal history of transient ischemic attack (TIA), and cerebral infarction without residual deficits; Z87.891 Personal history of nicotine dependence; Z87.820 Personal history of traumatic brain injury; Z81.1 Family history of alcohol abuse and dependence; Z82.49 Family history of ischemic heart disease and other diseases of the circulatory system
CPT/HCPCS: 96361 ×3; 96376; 96374; 96375; 99285; 36415; 94640 ×2; 94760; 93005; 93306; 80061; 80053; 82150; 82550; 83690; 84484; 85025 ×2; 85610; 85730; 86140; 81003; 84145; 87635; 71046; 76705; 71260; 74177; G0378 ×2; G0480; J1170 ×2; C9113; Q9967; 80320

== ENCOUNTER 2020-10-06 11:53 | Observation (INO) | payer MEDICARE, OTHER ==
[2020-10-06] MEDS ORDERED: SODIUM CHLORIDE 0.9% 1,000 ML IV STA (12:38)
[2020-10-06] MEDS ORDERED: HYDROmorphone 1 MG/ML 1 ML SYRINGE IVP STA (12:52)
[2020-10-06 13:06] LABS: Basophils % (A) 1 %; Eosinophils # (A) 0.2 k/uL (0-0.7); Eosinophils % (A) 3 %; HGB 16.4 gm/dL (13.0-17.5); Lymphocytes # (A) 1.1 k/uL (1.0-4.8); Lymphocytes % (A) 14 %; MCH 29.8 pg (25.0-35.0); MCHC 32.8 g/dL (31.0-37.0); MCV 90.9 fL (80.0-100.0); Monocytes # (A) 0.5 k/uL (0-1.0); Monocytes % (A) 7 %; Neutrophils # (A) 5.5 k/uL (1.3-7.7); Neutrophils % (A) 74 %; Platelet Count 196 k/uL (150-450); RDW 14.5 % (11.5-15.5); WBC 7.5 k/uL (3.8-10.6)
[2020-10-06 13:18] LABS: ALT 16 U/L (4-49); AST 25 U/L (17-59); Albumin 4.8 g/dL (3.5-5.0); Alkaline Phosphatase 82 U/L (38-126); Anion Gap 8 mmol/L; Blood Urea Nitrogen 12 mg/dL (9-20); Calcium 9.7 mg/dL (8.4-10.2); Carbon Dioxide 27 mmol/L (22-30); Chloride 102 mmol/L (98-107); Glucose 108 mg/dL (74-99); Lipase 58 U/L (23-300); Potassium 4.7 mmol/L (3.5-5.1); Sodium 137 mmol/L (137-145); Total Bilirubin 0.7 mg/dL (0.2-1.3); Total Protein 7.7 g/dL (6.3-8.2)
[2020-10-06 13:19] LABS: African American GFR (CKD) >90 (>60 ml/min/1.73 sqM); Non-African American GFR(CKD) >90 (>60 ml/min/1.73 sqM)
[2020-10-06 13:22] LABS: Appearance,Urine Clear (Clear); Bilirubin,Urine Negative (Negative); Blood,Urine Negative (Negative); Color,Urine Yellow; Glucose,Urine (UA) Negative (Negative); Ketones,Urine Negative (Negative); Leukocyte Esterase,Urine Negative (Negative); Mucus,Urine Occasional /hpf; Nitrite,Urine Negative (Negative); Protein,Urine 1+ (Negative); RBC,Urine <1 /hpf (0-5); Specific Gravity,Urine 1.032 (1.001-1.035); Squamous Epithelial Cell,Urine <1 /hpf (0-4); WBC,Urine <1 /hpf (0-5)
--- NOTE | 2020-10-06 13:59 | US ---
EXAMINATION TYPE: US gallbladder DATE OF EXAM: 10/06/2020 COMPARISON: Ultrasound and CT 10/03/2020 CLINICAL HISTORY: ruq pain. ongoing RUQ pain EXAM MEASUREMENTS: Liver Length: 18.0 cm Gallbladder Wall: 0.2 cm CBD: 0.4 cm Right Kidney: 9.9 x 4.5 x 4.5 cm Pancreas: wnl Liver: wnl Gallbladder: wnl Evidence for sonographic Hogan's sign: YES CBD: wnl Right Kidney: 2.0cm cyst lower pole IMPRESSION: Positive sonographic Hogan's sign. No other significant interval change.
--- NOTE | 2020-10-06 14:07 | ED ---
Abdominal Pain HPI - General Chief Complaint: Abdominal Pain Stated Complaint: revisit - abd pain Time Seen by Provider: 10/06/20 12:37 Source: patient Mode of arrival: wheelchair Limitations: no limitations - History of Present Illness Initial Comments: 64-year-old male presents emergency Department with chief complaint of abdominal pain.patient states he was admittedin the hospital 3 days ago for right upper quadrant Abdominal pain without any radiation. Patient reports he had a cardiac consultation along with imaging performed showing no acute cardio processes. Patient states he also had an ultrasound of the right upper quadrant performed showing no acute processes with the gallbladder. Patient reports she was discharged 2 days ago and has a HIDA scan scheduled in about 2 weeks. Patient states upon discharge, the pain had returned and he continues to get worse. Patient reports he is not able tolerate the pain but denies any associated nausea vomiting or diarrhea. Denies any chest pain shortness of breath back pain fevers night sweats or chills. - Related Data Home Medications Medication Instructions Recorded Confirmed Budesonide/Formoterol Fumarate 2 puff INHALATION RT-BID 04/24/18 10/06/20 [Symbicort 160-4.5 Mcg Inhaler] Donepezil [Aricept] 10 mg PO BID 04/24/18 10/06/20 Memantine [Namenda] 5 mg PO BID 04/24/18 10/06/20 Sertraline [Zoloft] 100 mg PO BID 04/24/18 10/06/20 Umeclidinium [place] [Incruse 1 puff INHALATION RT-DAILY 04/24/18 10/06/20 Ellipta] rOPINIRole HCL [Requip] 2 mg PO BID 04/24/18 10/06/20 Albuterol Sulfate [Ventolin HFA] 1 - 2 puff INHALATION RT-Q6H PRN 10/03/20 10/06/20 Aspirin 325 mg PO DAILY 10/03/20 10/06/20 HYDROcodone/APAP 10-325MG [[place] 1 tab PO QID PRN 10/03/20 10/06/20 10-325] Oxybutynin Chloride [Ditropan] 5 mg PO DAILY 10/03/20 10/06/20 Allergies Allergy/AdvReac Type Severity Reaction Status Date / Time No Known Allergies Allergy Verified 10/06/20 13:43 Review of Systems ROS Statement: Those systems with pertinent positive or pertinent negative responses have been documented in the HPI. ROS Other: All systems not noted in ROS Statement are negative. Past Medical History Past Medical History: CVA/TIA, Hyperlipidemia, Hypertension Additional Past Medical History / Comment(s): chronic back pain History of Any Multi-Drug Resistant Organisms: None Reported Past Surgical History: Orthopedic Surgery Past Psychological History: Anxiety, Depression Smoking Status: Former smoker Past Alcohol Use History: Occasional Past Drug Use History: Marijuana - Past Family History Mother Additional Family Medical History / Comment(s): etoh abuse Father Family Medical History: Chest Pain / Angina Additional Family Medical History / Comment(s): mi General Exam Limitations: no limitations General appearance: alert, in no apparent distress Head exam: Present: atraumatic, normocephalic, normal inspection Eye exam: Present: normal appearance, PERRL, EOMI Pupils: Present: normal accommodation ENT exam: Present: normal exam, normal oropharynx, mucous membranes moist Neck exam: Present: normal inspection, full ROM. Absent: tenderness Respiratory exam: Present: normal lung sounds bilaterally. Absent: respiratory distress Cardiovascular Exam: Present: regular rate, normal rhythm, normal heart sounds GI/Abdominal exam: Present: soft, tenderness (positive Hogan sign), normal bowel sounds. Absent: distended, guarding, rebound, rigid Extremities exam: Present: normal inspection, full ROM, normal capillary refill. Absent: tenderness, pedal edema, joint swelling Back exam: Present: normal inspection, full ROM. Absent: tenderness, CVA tenderness (R), CVA tenderness (L) Neurological exam: Present: alert, oriented X3, normal gait Psychiatric exam: Present: normal affect, normal mood Skin exam: Present: warm, dry, intact, normal color Course Vital Signs 10/06/20 12:01 Temperature 98.5 F Pulse Rate 85 Respiratory 18 Rate Blood Pressure 118/83 O2 Sat by Pulse 96 Oximetry - Reevaluation(s) Reevaluation #1: 10/06/20 14:10 medical records reviewed Medical Decision Making - Medical Decision Making 64-year-old male presents to the emergency with a chief complaint of abdominal pain. On physical examination, patient is exquisitely tender in the right upper quadrant region with a positive Ohgan sign. CBC CMP UA unremarkable. EKG showing sinus bradycardia with no significant ST or T-wave changes. Patient was given Dilaudid for symptomatically relief. On reevaluation, patient reports continuous pain. He is scheduled for a HIDA scan in the next 2 weeks but is not able to make it due to increased pain. Patient will be admitted for further medical management. Case discussed with Dr. Espinal Admitting physician is Dr. leroy General surgery consult - Lab Data Result diagrams: 10/06/20 12:54 10/06/20 12:54 Lab Results 10/06/20 10/06/20 10/06/20 Range/Units 12:38 12:54 12:54 WBC 7.5 (3.8-10.6) k/uL RBC 5.50 (4.30-5.90) m/uL Hgb 16.4 (13.0-17.5) gm/dL Hct 50.0 (39.0-53.0) % MCV 90.9 (80.0-100.0) fL MCH 29.8 (25.0-35.0) pg MCHC 32.8 (31.0-37.0) g/dL RDW 14.5 (11.5-15.5) % Plt Count 196 (150-450) k/uL MPV 8.0 Neutrophils % 74 % Lymphocytes % 14 % Monocytes % 7 % Eosinophils % 3 % Basophils % 1 % Neutrophils # 5.5 (1.3-7.7) k/uL Lymphocytes # 1.1 (1.0-4.8) k/uL Monocytes # 0.5 (0-1.0) k/uL Eosinophils # 0.2 (0-0.7) k/uL Basophils # 0.0 (0-0.2) k/uL Sodium 137 (137-145) mmol/L Potassium 4.7 (3.5-5.1) mmol/L Chloride 102 (98-107) mmol/L Carbon Dioxide 27 (22-30) mmol/L Anion Gap 8 mmol/L BUN 12 (9-20) mg/dL Creatinine 0.74 (0.66-1.25) mg/dL Est GFR (CKD-EPI)AfAm >90 (>60 ml/min/1.73 sqM) Est GFR (CKD-EPI)NonAf >90 (>60 ml/min/1.73 sqM) Glucose 108 H (74-99) mg/dL Calcium 9.7 (8.4-10.2) mg/dL Total Bilirubin 0.7 (0.2-1.3) mg/dL AST 25 (17-59) U/L ALT 16 (4-49) U/L Alkaline Phosphatase 82 (38-126) U/L Total Protein 7.7 (6.3-8.2) g/dL Albumin 4.8 (3.5-5.0) g/dL Lipase 58 (23-300) U/L Urine Color Yellow Urine Appearance Clear (Clear) Urine pH 6.0 (5.0-8.0) Ur Specific [place] 1.032 (1.001-1.035) Urine Protein 1+ H (Negative) Urine Glucose (UA) Negative (Negative) Urine Ketones Negative (Negative) Urine Blood Negative (Negative) Urine Nitrite Negative (Negative) Urine Bilirubin Negative (Negative) Urine Urobilinogen 2.0 (<2.0) mg/dL Ur Leukocyte Esterase Negative (Negative) Urine RBC <1 (0-5) /hpf Urine WBC <1 (0-5) /hpf Ur Squamous Epith Cells <1 (0-4) /hpf Urine Mucus Occasional H (None) /hpf Disposition Clinical Impression: Intractable abdominal pain Disposition: ADMITTED IP TO THIS HOSP Condition: Good Instructions (If sedation given, give patient instructions): Abdominal Pain (ED) Is patient prescribed a controlled substance at d/c from ED?: No Referrals: Anthony Leroy MD [Primary Care Provider] - 1-2 days Time of Disposition: 14:23
[2020-10-06] MEDS ORDERED: LORazepam 2 MG/ML INJ IV PRN (14:19)
[2020-10-06] MEDS ORDERED: HYDROmorphone 0.5 MG/0.5 ML SYRINGE IVP PRN (14:19)
[2020-10-06] MEDS ORDERED: MORPHINE SULFATE 4 MG/ML SYRINGE IV PRN (14:19)
[2020-10-06] MEDS ORDERED: ONDANSETRON 4 MG/2 ML VIAL IVP PRN (14:19)
[2020-10-06] MEDS ORDERED: NALOXONE 0.4 MG/ML 1 ML VIAL IV PRN (14:19)
[2020-10-06] MEDS ORDERED: PIPERACILLIN-TAZOBACTAM 3.375 GM in SODIUM CHLORIDE 0.9% 100 ML IVPB STA (14:24)
[2020-10-06] MEDS: SODIUM CHLORIDE 0.9% 1,000 ML IV SCH (19:45)
[2020-10-06] MEDS: HYDROmorphone 1 MG/ML 1 ML SYRINGE IVP PRN (19:48)
--- NOTE | 2020-10-06 20:02 | NM ---
EXAMINATION TYPE: NM hepatobiliary w CCK DATE OF EXAM: 10/06/2020 COMPARISON: Same-day ultrasound and prior. HISTORY: Abdominal pain. TECHNIQUE: After the intravenous administration of 5.3 mCi Tc 99m Mebrofenin hepatobiliary scintigrap hy is performed. Immediate images post injection. FINDINGS: There is satisfactory initial accumulation of tracer by the liver. The gallbladder is visualized wit hin 8 minutes. The small bowel activity is noted within 10 minutes. At one hour CCK was administere d, patient was injected with 1.9 mcg of Kinevac, and gallbladder ejection fraction is calculated at 7 5 %, in the normal range. Therefore there is no scintigraphic evidence of cystic or common bile duct obstruction to suggest acute cholecystitis or gallbladder dyskinesia. IMPRESSION: Exam is within normal limits.
[2020-10-07] MEDS: HYDROmorphone 1 MG/ML 1 ML SYRINGE IVP PRN ×6 (00:23→20:05)
[2020-10-07] MEDS: PIPERACILLIN-TAZOBACTAM 3.375 GM in SODIUM CHLORIDE 0.9% 100 ML IVPB SCH ×3 (03:41→20:07)
[2020-10-07] MEDS: SODIUM CHLORIDE 0.9% 1,000 ML IV SCH ×2 (03:42→13:18)
[2020-10-07] MEDS: SYMBICORT 160-4.5 MCG INHALER INHALATION SCH ×2 (07:39→19:58)
[2020-10-07] MEDS: ALBUTEROL HFA INHALER INHALATION PRN ×3 (07:39→19:58)
[2020-10-07] MEDS: OXYBUTYNIN CHLORIDE 5 MG TAB PO SCH (08:53)
[2020-10-07] MEDS: SERTRALINE 100 MG TAB PO SCH ×2 (08:53→20:06)
[2020-10-07] MEDS: DONEPEZIL 10 MG TAB PO SCH ×2 (08:53→20:06)
--- NOTE | 2020-10-07 08:55 | P.GSCN ---
History of Present Illness Consult date: 10/07/20 History of present illness: CHIEF COMPLAINT: Right upper quadrant abdominal pain. HISTORY OF PRESENT ILLNESS: The patient is a 64 year old male who reports over 1-2 week history of right upper quadrant abdominal pain, sharp and exquisite. I personally ordered a HIDA scan which has been unremarkable. He denies any family history of gallbladder disorder. He does report family history of gastrointestinal disorder in his father. He has not had previous upper endos copy workup. He reports chronic aspirin use per recommendation of his doctor. He denies radiation to the back or shoulder. He reports hunger. General surgery is consulted for right upper quadrant abdominal pain. PAST MEDICAL HISTORY: See list and reviewed PAST SURGICAL HISTORY: See list and reviewed MEDICATIONS: See list and reviewed ALLERGIES: See list and reviewed SOCIAL HISTORY: See list and reviewed FAMILY HISTORY: See list and reviewed REVIEW OF ORGAN SYSTEMS: CONSTITUTIONAL: No fevers or chills. No recent weight loss. EYES: Denies any trouble with vision. No glasses. HEENT: No difficulties with hearing. No nosebleeds. No difficulty swallowing. RESPIRATORY: Has chronic obstructive pulmonary disease on inhalers. Past tobacco abuse. CARDIOVASCULAR: Past chest pain, palpitations, or recent heart attacks. Has hypertensive heart disease. Has hyperlipidemia. GASTROINTESTINAL: Denies fatty food intolerance. Denies change in bowel habits and gas bloat. GENITOURINARY: Denies any blood in urine or increased urinary frequency. NEUROLOGICAL: Denies any numbness or tingling along the distal extremities. No seizure disorders or headaches. Past stroke. MUSCULOSKELETAL: Has back pain, stiffness or joint arthritis. SKIN: No current skin cancer. No rash. PSYCHIATRIC: Has depression. No suicidal thoughts. Has anxiety. ENDOCRINE: Denies current thyroid disorders. Denies any blood sugar glucose intolerance. HEME/LYMPHATIC: Denies any lumps and bumps around the neck. No recent deep venous thrombosis. ALLERGY/IMMUNOLOGY: No immunoglobulin therapy. No immune deficiencies. BREAST: Denies current breast lumps, pain or nipple discharge. PHYSICAL EXAM: VITALS: Reviewed CONSTITUTIONAL: Well developed and in no acute distress. EYES: Conjuctivae without sclera icterus. Pupils are equally round and reactive to light. Extraocular movements grossly intact. HEAD, EARS, NOSE, THROAT: Moist buccal mucosa. Head is atraumatic, normocephalic. Hears conversational speech. No nasal drainage. NECK: Supple. No JV distention. No thyroidomegaly. RESPIRATORY: Non-labored respirations and equal bilateral excursions. No gross wheezes. CARDIOVASCULAR: Regular rate and rhythm. Palpable 2+ radial pulses. ABDOMEN: Soft. Right upper quadrant abdominal pain. MUSCULOSKELETAL: Nail and fingers with good capillary refill. SKIN: Warm and well perfused with good skin turgor. NEUROLOGIC: Cranial nerves II through XII grossly intact. Sensation upper and extremities intact. No focal or lateralizing signs. PSYCH: Appropriate affect. Alert and oriented to person, place and time. Displays appropriate insight. CLINCAL LABS: Reviewed. WBC normal. LFTs normal. IMAGING: Independently reviewed of gallbladder ultrasound independently reviewed without gallstones. RADIOLOGY: Report reviewed without gallstones. RECORDS: previous old records reviewed with ASSESSMENT: 1. Right upper quadrant abdominal pain 2. Duodenal ulcers PLAN: 1. He reports over 1-2 week history of right upper quadrant abdominal pain, sharp and exquisite. Duodenitis including duodenal ulcers cannot be excluded. 2. Recommend proceeding with an upper endoscopy for additional assessment prior to any surgical intervention. Thank you for this kind consultation. Past Medical History Past Medical History: CVA/TIA, Hyperlipidemia, Hypertension Additional Past Medical History / Comment(s): chronic back pain History of Any Multi-Drug Resistant Organisms: None Reported Past Surgical History: Orthopedic Surgery Past Anesthesia/Blood Transfusion Reactions: No Reported Reaction Past Psychological History: Anxiety, Depression Smoking Status: Former smoker Past Alcohol Use History: Occasional Past Drug Use History: Marijuana - Past Family History Mother Additional Family Medical History / Comment(s): etoh abuse Father Family Medical History: Chest Pain / Angina Additional Family Medical History / Comment(s): mi Medications and Allergies Home Medications Medication Instructions Recorded Confirmed Type Budesonide/Formoterol Fumarate 2 puff INHALATION RT-BID 04/24/18 10/06/20 History [Symbicort 160-4.5 Mcg Inhaler] Donepezil [Aricept] 10 mg PO BID 04/24/18 10/06/20 History Memantine [Namenda] 5 mg PO BID 04/24/18 10/06/20 History Sertraline [Zoloft] 100 mg PO BID 04/24/18 10/06/20 History Umeclidinium [place] [Incruse 1 puff INHALATION RT-DAILY 04/24/18 10/06/20 History Ellipta] rOPINIRole HCL [Requip] 2 mg PO BID 04/24/18 10/06/20 History Albuterol Sulfate [Ventolin HFA] 1 - 2 puff INHALATION RT-Q6H PRN 10/03/20 10/06/20 History HYDROcodone/APAP 10-325MG [[place] 1 tab PO QID PRN 10/03/20 10/06/20 History 10-325] Oxybutynin Chloride [Ditropan] 5 mg PO DAILY 10/03/20 10/06/20 History Omeprazole 40 mg PO BID #60 capsule. 10/07/20 Rx Sucralfate [Carafate] 1 gm PO BID #60 tablet 10/07/20 Rx Allergies Allergy/AdvReac Type Severity Reaction Status Date / Time No Known Allergies Allergy Verified 10/06/20 13:43 Surgical - Exam Vital Signs Temp Pulse Resp BP Pulse Ox 98.5 F 85 18 118/83 96 10/06/20 12:01 10/06/20 12:01 10/06/20 12:01 10/06/20 12:01 10/06/20 12:01 Results - Labs 10/06/20 12:54 10/06/20 12:54 Abnormal Lab Results - Last 24 Hours (Table) 10/06/20 10/06/20 Range/Units 12:38 12:54 Glucose 108 H (74-99) mg/dL Urine Protein 1+ H (Negative) Urine Mucus Occasional H (None) /hpf Diabetes panel 10/06/20 Range/Units 12:54 Sodium 137 (137-145) mmol/L Potassium 4.7 (3.5-5.1) mmol/L Chloride 102 (98-107) mmol/L Carbon Dioxide 27 (22-30) mmol/L BUN 12 (9-20) mg/dL Creatinine 0.74 (0.66-1.25) mg/dL Glucose 108 H (74-99) mg/dL Calcium 9.7 (8.4-10.2) mg/dL AST 25 (17-59) U/L ALT 16 (4-49) U/L Alkaline Phosphatase 82 (38-126) U/L Total Protein 7.7 (6.3-8.2) g/dL Albumin 4.8 (3.5-5.0) g/dL Calcium panel 10/06/20 Range/Units 12:54 Calcium 9.7 (8.4-10.2) mg/dL Albumin 4.8 (3.5-5.0) g/dL Pituitary panel 10/06/20 Range/Units 12:54 Sodium 137 (137-145) mmol/L Potassium 4.7 (3.5-5.1) mmol/L Chloride 102 (98-107) mmol/L Carbon Dioxide 27 (22-30) mmol/L BUN 12 (9-20) mg/dL Creatinine 0.74 (0.66-1.25) mg/dL Glucose 108 H (74-99) mg/dL Calcium 9.7 (8.4-10.2) mg/dL Adrenal panel 10/06/20 Range/Units 12:54 Sodium 137 (137-145) mmol/L Potassium 4.7 (3.5-5.1) mmol/L Chloride 102 (98-107) mmol/L Carbon Dioxide 27 (22-30) mmol/L BUN 12 (9-20) mg/dL Creatinine 0.74 (0.66-1.25) mg/dL Glucose 108 H (74-99) mg/dL Calcium 9.7 (8.4-10.2) mg/dL Total Bilirubin 0.7 (0.2-1.3) mg/dL AST 25 (17-59) U/L ALT 16 (4-49) U/L Alkaline Phosphatase 82 (38-126) U/L Total Protein 7.7 (6.3-8.2) g/dL Albumin 4.8 (3.5-5.0) g/dL Assessment and Plan (1) Acute gastritis with bleeding Status: Acute Code(s): K29.01 - ACUTE GASTRITIS WITH BLEEDING SNOMED Code(s): 9630415 (2) Duodenal ulcer Status: Acute Code(s): K26.9 - DUODENAL ULCER, UNSP ACUTE OR CHRONIC, W/O HEMOR OR PERF SNOMED Code(s): 18550282 (3) Intractable abdominal pain Status: Acute Code(s): R10.9 - UNSPECIFIED ABDOMINAL PAIN SNOMED Code(s): 78136830 (4) Right upper quadrant abdominal pain Status: Acute Code(s): R10.11 - RIGHT UPPER QUADRANT PAIN SNOMED Code(s): 756874896
[2020-10-07] MEDS ORDERED: PROPOFOL 10 MG/ML 20 ML VIAL IV ONE (12:34)
[2020-10-07] MEDS ORDERED: LIDOCAINE 1% INJ 10MG/ML (20 ML MDV) ONE (12:34)
[2020-10-07] MEDS ORDERED: ePHEDrine SULFATE/0.9% NACL/PF 50 MG/5 ML SYRINGE IV ONE (12:34)
[2020-10-07] MEDS ORDERED: IV FLUID CONTINUATION 1,000 ML IV ONE ×2 (12:36)
--- NOTE | 2020-10-07 12:57 | P.PCN ---
Date of Procedure: 10/07/20 Description of Procedure: PREOPERATIVE DIAGNOSIS: Right upper quadrant abdominal pain Chronic NSAID use POSTOPERATIVE DIAGNOSIS: Acute gastritis with bleeding Acute duodenal ulcer consistent right lower quadrant abdominal pain Diaphragmatic hiatal hernia Gastroesophageal reflux disease OPERATION: Esophagogastroduodenoscopy with biopsies along antrum. SURGEON: Millie Colon MD ANESTHESIA: MAC. INDICATIONS: The patient is a 64-year-old male who presents recurrent right upper quadrant abdominal pain of moderate to severe intensity. He has history of chronic NSAID use. Prior gallbladder studies has been unremarkable. Benefits and risks of the procedure were described. Informed consent was obtained. DESCRIPTION: The patient was brought into the endoscopy suite and laid in the left lateral decubitus position. An Olympus gastroscope was passed along the posterior oropharynx down to the distal esophagus where the squamocolumnar junction was encountered at 40 cm from the incisors. The stomach was entered and no bile reflux was found. Additional findings are listed below. Biopsies with cold forceps were obtained of the antrum. The first through third portion of the duodenum was examined and remarkable large duodenal ulcer of 1.5-2 cm at the second portion without active bleeding. Retroflexion of the scope confirmed Hill grade 3 lower esophageal valve. The squamocolumnar junction demonstrated LA grade B erosive esophagitis. The stomach was desufflated. The patient tolerated the procedure well. FINDINGS: Squamocolumnar junction 40 cm from the incisors. Diaphragmatic hiatus at 41 cm. Hiatal hernia, 1 cm Hill grade 3 lower esophageal valve. LA grade B erosive esophagitis. Large 1.5-2 cm acute and chronic duodenal ulcer without active bleeding Acute gastritis with bleed gastric cardia with biopsies obtained of the antrum RECOMMENDATIONS: Repeat upper endoscopy in 4 weeks Start Carafate 1 g 3 times daily and omeprazole 40 mg twice a day for 4 weeks May start full liquid diet Complete abstinence from NSAIDs including aspirin, ibuprofen, naproxen, Aleve
--- NOTE | 2020-10-07 14:20 | P.PN ---
Progress Note - Text Progress Note Date: 10/07/20 Patient reevaluated following upper endoscopy. Images including findings described to patient with duodenal ulcer consistent with patient's pain. Complete abstinence from nonsteroidal anti-inflammatories described. Patient also confirms no exposure to tobacco use or personal use of tobacco use. Recommend at least 4 weeks of omeprazole and Carafate. Patient to follow-up in the office outpatient. Patient stable for discharge once medically stable.
[2020-10-07] MEDS: SUCRALFATE 1 GM TAB PO SCH (16:58)
[2020-10-07] MEDS: PANTOPRAZOLE 40 MG TABLET PO SCH (16:58)
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
[2020-10-07] MEDS: HYDROcodone/APAP 10-325MG 1 EACH TAB PO PRN (22:57)
[2020-10-08 02:15] VITALS: RESP 16
[2020-10-08] MEDS: HYDROcodone/APAP 10-325MG 1 EACH TAB PO PRN ×2 (02:40→11:21)
[2020-10-08] MEDS: PIPERACILLIN-TAZOBACTAM 3.375 GM in SODIUM CHLORIDE 0.9% 100 ML IVPB SCH (04:29)
[2020-10-08] MEDS: SODIUM CHLORIDE 0.9% 1,000 ML IV SCH (04:29)
[2020-10-08] MEDS: SUCRALFATE 1 GM TAB PO SCH (07:04)
[2020-10-08] MEDS: PANTOPRAZOLE 40 MG TABLET PO SCH (07:04)
[2020-10-08] MEDS: HYDROmorphone 1 MG/ML 1 ML SYRINGE IVP PRN (07:09)
[2020-10-08 08:05] VITALS: BP 156/90; PULSE 52; TEMP 97.6
[2020-10-08] MEDS: OXYBUTYNIN CHLORIDE 5 MG TAB PO SCH (08:15)
[2020-10-08] MEDS: DONEPEZIL 10 MG TAB PO SCH (08:15)
[2020-10-08] MEDS: SERTRALINE 100 MG TAB PO SCH (08:15)
[2020-10-08] MEDS: SYMBICORT 160-4.5 MCG INHALER INHALATION SCH (08:31)
[2020-10-08] MEDS: ALBUTEROL HFA INHALER INHALATION PRN (08:32)
--- NOTE | 2020-10-08 11:52 | P.PN ---
Progress Note - Text Progress Note Date: 10/08/20 Patient states he feels better. He denies a significant abdominal pain. On exam vital signs are stable. Abdomen soft.. Patient will be discharged home today.
--- NOTE | 2020-10-08 21:13 | DS ---
DISCHARGE SUMMARY I am covering for Dr. Leroy. DATE OF SERVICE: 10/08/2020 FINAL DIAGNOSES: 1. Acute gastrointestinal bleeding with acute duodenal ulcer. 2. Intractable abdominal pain. 3. Right upper quadrant abdominal pain. 4. Chronic obstructive pulmonary disease. 5. History of hypertension. 6. Hyperlipidemia. 7. Chronic back pain, degenerative joint disease. 8. Anxiety, depression. 9. History of nicotine dependence. 10.FULL CODE. DISCHARGE DISPOSITION: The patient will be discharged in stable condition with guarded prognosis. Total time taken 35 minutes. HISTORY OF PRESENT ILLNESS: This 64-year-old gentleman with a past medical history of multiple medical problems admitted with features of gastrointestinal bleed. The patient underwent an EGD by Dr. Colon. EGD showed acute gastritis with bleeding and acute duodenal ulcer consistent with right upper quadrant abdominal pain and diaphragmatic hiatal hernia and GERD. The patient treated medically. Patient improved significantly. Hemoglobin is currently 16.5. Recommended close followup with Dr. Leroy and continue with proton pump inhibitors. Follow up with multiple consultants as recommended. On exam, vitals are stable. Cardiovascular S1, S2. Abdomen soft. Nervous system: No focal deficits. DISCHARGE RECOMMENDATIONS AND MEDICATIONS: 1. Diet is cardiac diet. 2. Activity limited until followup. 3. Follow up with Dr. Leroy as mentioned earlier. 4. Follow up with Dr. Colon, as mentioned. 5. Diet is soft bland. 6. Avoid aspirin, ibuprofen, Naprosyn. 7. Hold aspirin for now. DISCHARGE MEDICATIONS: 1. Aricept 10 mg p.o. b.i.d. 2. Ditropan 5 mg p.o. daily. 3. Incruse Ellipta as before. 4. Namenda 5 mg p.o. b.i.d. 5. [place] 10 mg q.i.d. p.r.n. 6. Requip 2 mg p.o. b.i.d. 7. Symbicort b.i.d. 8. Albuterol p.r.n. 9. Zoloft 100 mg p.o. b.i.d. 10.Carafate 1 g p.o. b.i.d. 11.Omeprazole 40 mg p.o. b.i.d. Once again the patient being discharged in stable condition with guarded prognosis. MMODL / IJN: [id number] /
== END 2020-10-08 11:37 ==
LOC: EC 11:53 → 6NMEDSUR 14:23
PROVIDERS: ADMIT Family Medicine; ATTEND Family Medicine
DX: K26.3 Acute duodenal ulcer without hemorrhage or perforation (principal); K29.01 Acute gastritis with bleeding; K21.9 Gastro-esophageal reflux disease without esophagitis; K44.9 Diaphragmatic hernia without obstruction or gangrene; K22.10 Ulcer of esophagus without bleeding; J44.9 Chronic obstructive pulmonary disease, unspecified; I11.9 Hypertensive heart disease without heart failure; E78.5 Hyperlipidemia, unspecified; G89.29 Other chronic pain; M54.9 Dorsalgia, unspecified; M19.90 Unspecified osteoarthritis, unspecified site; F41.9 Anxiety disorder, unspecified; F32.9 Major depressive disorder, single episode, unspecified; Z87.891 Personal history of nicotine dependence; F03.90 Unspecified dementia, unspecified severity, without behavioral disturbance, psychotic disturbance, mood disturbance, and anxiety; G25.81 Restless legs syndrome; Z86.73 Personal history of transient ischemic attack (TIA), and cerebral infarction without residual deficits; Z79.51 Long term (current) use of inhaled steroids; Z79.899 Other long term (current) drug therapy; Z79.891 Long term (current) use of opiate analgesic; Z79.82 Long term (current) use of aspirin; Z79.1 Long term (current) use of non-steroidal anti-inflammatories (NSAID); Z87.19 Personal history of other diseases of the digestive system; Z82.49 Family history of ischemic heart disease and other diseases of the circulatory system; Z20.822 Contact with and (suspected) exposure to COVID-19
CPT/HCPCS: 96376; 96365; 96366; 96361; 96375; 99285; 36415; 94640 ×4; 93005; 88305; 80053; 83690; 85025; 81001; 87635; 76705; 78227; 43239; G0378 ×3; A9537; J2543 ×3; J2805; J2001; J1170 ×3; J2704

== ENCOUNTER → 2024-08-04 | Outpatient (CLI) | payer MEDICARE, OTHER ==
--- NOTE | 2024-08-04 11:45 | XR ---
EXAMINATION TYPE: XR soft tissue neck DATE OF EXAM: 08/04/2024 11:25 AM COMPARISON: None CLINICAL INDICATION: Male, 68 years old with history of R09.89 OTH SYMPTOMS AND SIGNS R22.1 Localized swel; TECHNIQUE: The soft tissues of the neck were imaged in frontal and lateral views. FINDINGS: The prevertebral soft tissues are unremarkable. There is no evidence of mass effect or trac heal deviation. No acute osseous abnormality demonstrated. No evidence of subglottic narrowing. Mul tilevel degeneration of the spine with osteophyte formation. IMPRESSION: No significant abnormality identified within the soft tissues of the neck. [facility], , 08/04/2024 11:43 AM
--- NOTE | 2024-08-04 11:57 | XR ---
EXAMINATION TYPE: XR chest 2V DATE OF EXAM: 08/04/2024 11:26 AM COMPARISON: Chest radiographs from 10/03/2020 CLINICAL INDICATION: Male, 68 years old with history of R09.89 OTH SYMPTOMS AND SIGNS R22.1 Localized swel; [facility] TECHNIQUE: XR chest 2V Frontal and lateral views of the chest. FINDINGS: Lungs/Pleura: There is flattening of the diaphragm with increased lucency of the lungs. No evidence o f pneumothorax, pleural effusion or focal consolidation. Pulmonary vascularity: Unremarkable. Heart/mediastinum: Cardiomediastinal silhouette is unremarkable. Musculoskeletal: No acute osseous pathology. Deformities of the posterior ribs bilaterally. IMPRESSION: 1. No acute cardiopulmonary disease process. 2. COPD changes. 3. Posterior rib deformities bilaterally correlate for prior fractures. [facility], , 08/04/2024 11:55 AM
== END | disposition home or self-care (01) ==
LOC: RADXRMAIN 10:41
PROVIDERS: ATTEND Internal Medicine
DX: R09.89 Other specified symptoms and signs involving the circulatory and respiratory systems (principal); R22.1 Localized swelling, mass and lump, neck; J44.9 Chronic obstructive pulmonary disease, unspecified; M95.4 Acquired deformity of chest and rib
CPT/HCPCS: 70360; 71046

== ENCOUNTER 2024-08-05 11:12 | Emergency (ER) | payer MEDICARE, OTHER ==
[2024-08-05 11:29] VITALS: RESP 18; TEMP 98.3
[2024-08-05 12:28] LABS: Basophils # (A) 0.1 k/uL (0-0.2); Basophils % (A) 1 %; Eosinophils # (A) 0.2 k/uL (0-0.7); Eosinophils % (A) 2 %; HCT 42.9 % (39.0-53.0); HGB 14.1 gm/dL (13.0-17.5); Lymphocytes # (A) 0.9 k/uL (1.0-4.8); Lymphocytes % (A) 12 %; MCH 31.7 pg (25.0-35.0); MCV 96.1 fL (80.0-100.0); Mean Platelet Volume 8.6; Monocytes # (A) 0.6 k/uL (0-1.0); Monocytes % (A) 8 %; Neutrophils # (A) 5.4 k/uL (1.3-7.7); Neutrophils % (A) 74 %; Platelet Count 215 k/uL (150-450); RBC 4.47 m/uL (4.30-5.90); WBC 7.2 k/uL (3.8-10.6)
[2024-08-05 12:48] LABS: ALT 19 U/L (4-49); AST 27 U/L (17-59); African American GFR (CKD) >90 (>60 ml/min/1.73 sqM); Albumin 4.3 g/dL (3.5-5.0); Alkaline Phosphatase 61 U/L (38-126); Anion Gap 9 mmol/L; Blood Urea Nitrogen 20 mg/dL (9-20); Calcium 9.1 mg/dL (8.4-10.2); Carbon Dioxide 25 mmol/L (22-30); Chloride 104 mmol/L (98-107); Glucose 72 mg/dL (74-99); Magnesium 1.6 mg/dL (1.6-2.3); Non-African American GFR(CKD) 90 (>60 ml/min/1.73 sqM); Phosphorus 2.9 mg/dL (2.5-4.5); Potassium 3.7 mmol/L (3.5-5.1); Sodium 138 mmol/L (137-145); Total Protein 6.6 g/dL (6.3-8.2)
--- NOTE | 2024-08-05 13:00 | ED ---
Recheck HPI - General Chief Complaint: Recheck/Abnormal Lab/Rx Stated Complaint: high potassium Time Seen by Provider: 08/05/24 11:54 Source: patient, RN notes reviewed Mode of arrival: ambulatory Limitations: no limitations - History of Present Illness Initial Comments: This is a 68-year-old male who presents to the emergency department for hyperkalemia. Patient had blood work done yesterday demonstrating elevated potassium of 6.2. He received a call from his primary care provider to come here for evaluation. Denies any chest pain or shortness of breath. Denies any history of hyperkalemia. He does also express concern about problems with his ears being clogged and muffled hearing and inquired about what he can do for this. This has been an ongoing problem for him and he is waiting to follow-up with an ENT. - Related Data Home Medications Medication Instructions Recorded Confirmed Budesonide/Formoterol Fumarate 2 puff INHALATION RT-BID PRN 04/24/18 08/05/24 [Symbicort 160-4.5 Mcg Inhaler] Albuterol Sulfate [Ventolin HFA] 2 puff INHALATION RT-Q6H PRN 10/03/20 08/05/24 Tiotropium 2.5 Mcg/Puff [Spiriva 2 puff INHALATION RT-DAILY 08/05/24 08/05/24 Respimat 2.5 Mcg] Previous Rx's Medication Instructions Recorded Fluticasone Nasal [place] [Flonase 1 spray EA NOSTRIL DAILY #16 gm 08/05/24 Nasal [place]] Allergies Allergy/AdvReac Type Severity Reaction Status Date / Time No Known Allergies Allergy Verified 08/05/24 12:14 Review of Systems ROS Statement: Those systems with pertinent positive or pertinent negative responses have been documented in the HPI. ROS Other: All systems not noted in ROS Statement are negative. Past Medical History Past Medical History: COPD, CVA/TIA, Hyperlipidemia, Hypertension Additional Past Medical History / Comment(s): chronic back pain History of Any Multi-Drug Resistant Organisms: None Reported Past Surgical History: Orthopedic Surgery Past Anesthesia/Blood Transfusion Reactions: No Reported Reaction Past Psychological History: Anxiety, Depression Smoking Status: Former smoker Past Alcohol Use History: Occasional Past Drug Use History: Marijuana - Past Family History Mother Additional Family Medical History / Comment(s): etoh abuse Father Family Medical History: Chest Pain / Angina Additional Family Medical History / Comment(s): mi General Exam Limitations: no limitations General appearance: alert, in no apparent distress Head exam: Present: atraumatic, normocephalic, normal inspection ENT exam: Present: TM's normal bilaterally, normal external ear exam Respiratory exam: Present: normal lung sounds bilaterally. Absent: respiratory distress, wheezes, rales, rhonchi, stridor Cardiovascular Exam: Present: regular rate, normal rhythm, normal heart sounds. Absent: systolic murmur, diastolic murmur, rubs, gallop, clicks Neurological exam: Present: alert, oriented X3, CN II-XII intact Psychiatric exam: Present: normal affect, normal mood Skin exam: Present: warm, dry, intact, normal color. Absent: rash Course Vital Signs 08/05/24 08/05/24 11:24 13:42 Temperature 98.3 F Pulse Rate 100 90 Respiratory 18 18 Rate Blood Pressure 163/109 155/99 O2 Sat by Pulse 94 L 98 Oximetry Medical Decision Making - Medical Decision Making This is a 68-year-old male who presents to the emergency department for hyperkalemia. Was pt. sent in by a medical professional or institution? @ -No Did you speak to anyone other than the patient for history? @ -No Did you review nursing and triage notes? @ -Yes, and I agree, it is accurate with regards to the patient's symptoms. Were old charts reviewed? @ -No Differential Diagnosis? @ -Laboratory error, medication, renal failure, this is not meant to be an all- inclusive list. EKG interpreted by me (3pts min.)? @ -EKG interpreted by me demonstrating the following: Sinus tachycardia. Ventricular rate 110 bpm, WA interval 152 ms, QRS duration 86 ms, QTc 396 ms. X-rays interpreted by me (1pt min.)? @ -Not obtained CT interpreted by me (1pt min.)? @ -Not obtained U/S interpreted by me (1pt. min.)? @ -Not obtained What testing was considered but not performed? (CT, X-rays, U/S, labs)? Why? @ -None What meds were considered but not given? Why? @ -None Did you discuss the management of the patient with other professionals? @ -No Did you reconcile home meds? @ -No Was smoking cessation discussed for >3mins.? @ -No Was critical care preformed (if so, how long)? @ -No Were there social determinants of health that impacted care today? How? (Homelessness, low income, unemployed, alcoholism, drug addiction, transportation, low edu. Level, literacy, decrease access to med. care, shelter, rehab)? @ -No Was there de-escalation of care discussed even if they declined? (Discuss DNR or withdrawal of care, Hospice)? @ -No What co-morbidities impacted this encounter? (DM, HTN, Smoking, COPD, CAD, Cancer, CVA, Hep., AIDS, mental health diagnosis, sleep apnea, morbid obesity)? @ -HLD, HTN Was patient admitted / discharged? @ -Discharged. Repeat lab work demonstrates a potassium of 3.7, within normal limits. Advised that the specimen from yesterday may have been hemolyzed. Given that this is currently normal, advised that he can be discharged home to follow-up with his primary care provider. Regarding the ears, physical examination was unremarkable. Discussed the possibility of eustachian tube dysfunction. Fluticasone nasal spray prescribed to see if this offers any benefit. Case discussed with ED attending Dr. Espinal. Return precautions reviewed in depth, the patient is instructed to return to the emergency department with any new, worsening, or concerning symptoms. Patient verbalized understanding. Undiagnosed new problem with uncertain prognosis? @ -None Drug Therapy requiring intensive monitoring for toxicity (Heparin, Nitro, Insulin, Cardizem)? @ -None Were any procedures done? @ -None Diagnosis/symptom? @ -Abnormal laboratory test, eustachian tube dysfunction Acute, or Chronic, or Acute on Chronic? @ -Acute Uncomplicated (without systemic symptoms) or Complicated (systemic symptoms)? @ -Uncomplicated Side effects of treatment? @ -None Exacerbation, Progression, or Severe Exacerbation] @ -Not applicable Poses a threat to life or bodily function? @ -No - Lab Data Result diagrams: 08/05/24 12:21 08/05/24 12:21 Lab Results 08/05/24 08/05/24 Range/Units 12: 12:21 WBC 7.2 (3.8-10.6) k/uL RBC 4.47 (4.30-5.90) m/uL Hgb 14.1 (13.0-17.5) gm/dL Hct 42.9 (39.0-53.0) % MCV 96.1 (80.0-100.0) fL MCH 31.7 (25.0-35.0) pg MCHC 33.0 (31.0-37.0) g/dL RDW 14.0 (11.5-15.5) % Plt Count 215 (150-450) k/uL MPV 8.6 Neutrophils % 74 % Lymphocytes % 12 % Monocytes % 8 % Eosinophils % 2 % Basophils % 1 % Neutrophils # 5.4 (1.3-7.7) k/uL Lymphocytes # 0.9 L (1.0-4.8) k/uL Monocytes # 0.6 (0-1.0) k/uL Eosinophils # 0.2 (0-0.7) k/uL Basophils # 0.1 (0-0.2) k/uL Sodium 138 (137-145) mmol/L Potassium 3.7 (3.5-5.1) mmol/L Chloride 104 (98-107) mmol/L Carbon Dioxide 25 (22-30) mmol/L Anion Gap 9 mmol/L BUN 20 (9-20) mg/dL Creatinine 0.88 (0.66-1.25) mg/dL Est GFR (CKD-EPI)AfAm >90 (>60 ml/min/1.73 sqM) Est GFR (CKD-EPI)NonAf 90 (>60 ml/min/1.73 sqM) Glucose 72 L (74-99) mg/dL Calcium 9.1 (8.4-10.2) mg/dL Phosphorus 2.9 (2.5-4.5) mg/dL Magnesium 1.6 (1.6-2.3) mg/dL Total Bilirubin 1.0 (0.2-1.3) mg/dL AST 27 (17-59) U/L ALT 19 (4-49) U/L Alkaline Phosphatase 61 (38-126) U/L Total Protein 6.6 (6.3-8.2) g/dL Albumin 4.3 (3.5-5.0) g/dL Disposition Clinical Impression: Abnormal laboratory test, Eustachian tube dysfunction Disposition: HOME SELF-CARE Additional Instructions: Return to the emergency department with any new, worsening, or concerning symptoms. Try using the Flonase nasal spray to see if that helps with the ear fullness. You can also take an lrxa-iao-djymgla antihistamine like Claritin or Ghislaine. Follow up with your primary care provider in 1-2 days. Prescriptions: Fluticasone Nasal [place] [Flonase Nasal [place]] 1 spray EA NOSTRIL DAILY #16 gm Is patient prescribed a controlled substance at d/c from ED?: No Referrals: Raymundo Maier DO [Primary Care Provider] - 1-2 days Time of Disposition: 13:12
[2024-08-05 13:44] VITALS: BP 155/99; PULSE 90
== END 2024-08-05 13:44 | disposition home or self-care (01) ==
LOC: EC 11:12
DX: R79.9 Abnormal finding of blood chemistry, unspecified (principal); H69.90 Unspecified Eustachian tube disorder, unspecified ear; E78.5 Hyperlipidemia, unspecified; I10 Essential (primary) hypertension; Z87.891 Personal history of nicotine dependence
CPT/HCPCS: 36415; 80053; 83735; 84100; 85025; 93005; 99285

== ENCOUNTER → 2024-09-09 | Outpatient (CLI) | payer MEDICARE ==
--- NOTE | 2024-09-09 16:51 | CTL ---
EXAMINATION TYPE: CT Low Dose Lung DATE OF EXAM: 09/09/2024 4:12 PM COMPARISON: 10/03/2020 CLINICAL INDICATION: Male, 68 years old with history of Z12.2 ENCNTR SCREEN FO Z87.891 NICOTINE DEPEN DENCE, Lung screening for nicotine dependence of 1ppd x40 years, quit smoking 10 years ago., Lung can cer screening, History of tobacco use. TECHNIQUE: Low dose computed tomography scan was performed through the chest at 1 mm thick sections a nd reconstructed images in the coronal plane at 1 mm thick sections. Contrast used: mL of , (none if empty) Oral contrast used: (none if empty) CT DLP: 103.6 mGycm, Automated exposure control for dose reduction was used. CT CTDI: 2.6 mGy, Automated exposure control for dose reduction was used. SCREENING VISIT: CT DIAGNOSTIC QUALITY: Satisfactory FINDINGS: LUNG NODULES: Present, detailed below: 1. 0.5 cm nodule left lateral sulcus. Series 4 image 259. Present previously. LUNGS: COPD: Severity: Severe Fibrosis: Severity: None Lymph nodes: None Other findings: None RIGHT PLEURAL SPACE: Effusion: None Calcification: None Thickening: None Pneumothorax: None LEFT PLEURAL SPACE: Effusion: None Calcification: None Thickening: None Pneumothorax: None HEART: Other: Ascending thoracic aorta at the level the main pulmonary artery measures 4.2 cm. The main pul monary artery at the bifurcation measures3.0 cm. Heart Size: Normal Coronary calcification: Mild Pericardial effusion: None OTHER FINDINGS: Upper abdomen: Cyst at the superior pole left kidney Bony thorax: Normal Supraclavicular region: Normal IMPRESSION: 1. Stable nodule left lateral sulcus. 2. Ascending thoracic aortic aneurysm 4.[address] CHEST RECOMMENDATION: Follow-up low-dose CT chest one year CT LUNG RAD: Lung-Rad 2 Benign Appearance or Behavior [facility], Workstation: [id number], 09/09/2024 4:49 PM
== END | disposition home or self-care (01) ==
LOC: RADCTMAIN 15:18
PROVIDERS: ATTEND Internal Medicine
DX: Z12.2 Encounter for screening for malignant neoplasm of respiratory organs (principal); Z87.891 Personal history of nicotine dependence; I71.21 Aneurysm of the ascending aorta, without rupture; J44.9 Chronic obstructive pulmonary disease, unspecified; R91.1 Solitary pulmonary nodule
CPT/HCPCS: 71271

== ENCOUNTER → 2024-12-29 | Outpatient (CLI) | payer MEDICARE ==
--- NOTE | 2024-12-29 17:36 | MR ---
EXAMINATION TYPE: MR brain and iac wo/w con DATE OF EXAM: 12/29/2024 4:59 PM COMPARISON: CT brain 12/06/2014 CLINICAL INDICATION: Male, 69 years old with history of SUDDEN IDIOPATHIC HEARING LOSS, RIGHT EAR H91 .21 H93.0, Sudden right side hearing loss, fell and hit head about 3-4 months ago. TECHNIQUE: Multiplanar, multiecho imaging on a 3.0 Yissel magnet is performed through the brain. Atte ntion is paid to the internal auditory canals with thin section imaging. Postcontrast imaging is per formed through the internal auditory canals. IV Contrast: 7 mL Gadobutrol (None, if empty) FINDINGS: Diffusion-weighted imaging is performed. No suspicious hyperintensity is present to suggest an acute intracranial infarct or acute ischemic area. Signal within the brain has scattered areas of hyperintensity which are non-specific but could be rel ated to microvascular ischemic changes. There is some white matter change in the inferior medial rig ht cerebellum. Multiple sclerosis should also be considered within the differential. There is ex vacuo effect on the left lateral ventricle greater at the occipital region. There is monse ed hypointensity within the subcortical white matter of the left proximal temporal parietal lobes wit h prominence of sulci. This has some blooming artifact on the gradient imaging suggesting prior hemor rhage. Thin section imaging is performed through the internal auditory canals and cerebellar pontine angles. No cerebellar pontine angle masses are evident. The internal auditory canals appear normal without expansion or erosion. Postcontrast imaging was performed. No suspicious enhancement is evident within the internal audito ry canals or the included portions of the brain. IMPRESSION: 1. There is likely old changes from prior hemorrhage in the left posterior parietal temporal region. Ex vacuo effect is evident within this region. 2. White matter changes which are nonspecific. Microvascular ischemic change and multiple sclerosis a re within the differential. [facility], Workstation: [id number], 12/29/2024 5:34 PM
== END | disposition home or self-care (01) ==
LOC: RADMRIMAIN 15:54
PROVIDERS: ATTEND Otolaryngology
DX: R90.82 White matter disease, unspecified (principal); I67.82 Cerebral ischemia; H93.01 Transient ischemic deafness
CPT/HCPCS: 70553; A9585